=== PATIENT | female | born 1980 | race Caucasian/White ===

== ENCOUNTER 2021-11-28 15:26 | Emergency (ER) | payer BC, OTHER ==
[2021-11-28] MEDS ORDERED: cloNIDine HCL 0.1 MG TAB ONE (16:19)
[2021-11-28 16:28] LABS: Absolute Lymphocytes (CBC) 2.3 K/uL (0.7-4.9); Hematocrit 40.7 % (36.0-45.0); Lymphocytes % 29.6 % (15.3-44.8); MPV 8.4 fL (7.6-11.3)
[2021-11-28 16:43] LABS: Potassium 3.5 mmol/L (3.5-5.1); Troponin High Sensitivity 8.9 pg/mL (<58.9)
--- NOTE | 2021-11-28 17:48 | RAD REPORT ---
EXAM DESCRIPTION: Jenni Single View11/28/2021 5:38 pm CLINICAL HISTORY: Chest pain/shoulder pain COMPARISON: none FINDINGS: The lungs appear clear of acute infiltrate. The heart is normal size IMPRESSION: No acute abnormalities displayed
--- NOTE | 2021-11-28 18:25 | EDPHYS ---
Physician Documentation [facility] Name: Gabby Mueller Age: 41 yrs Sex: Female : 1980 Arrival Date: 11/28/2021 Time: 15:33 Bed 13 Private MD: ED Physician Jeffrey Molina HPI: 11/28 15:58 This 41 yrs old Female presents to ER via Unassigned with complaints of High Blood ms3 Pressure. 15:58 The patient has elevated blood pressure and discovered this at home, with a home ms3 device. Onset: The symptoms/episode began/occurred 1 month(s) ago. Modifying factors: The symptoms are aggravated by Nothing, The symptoms are alleviated by Nothing. Associated signs and symptoms: The patient has no apparent associated signs or symptoms. Severity of symptoms: At its worst the blood pressure was severe, earlier today, 213 mm Hg. 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 - Social history:: Smoking status: Patient reports the use of cigarette tobacco products, smokes one pack cigarettes per day. ROS: 15:58 Constitutional: Negative for fever, and chills. Eyes: Negative for injury, pain, ms3 redness, and discharge, Neck: Negative for injury, pain, and swelling, Cardiovascular: Negative for chest pain, and palpitations. Respiratory: Negative for shortness of breath, cough, wheezing, and pleuritic chest pain, Abdomen/GI: Negative for abdominal pain, nausea, vomiting, diarrhea, and constipation, Skin: Negative for injury, rash, and discoloration, Neuro: Negative for headache, weakness, numbness, tingling. 15:58 MS/extremity: Positive for Left shoulder pain. Exam: 15:58 Constitutional: This is a well developed, well nourished patient who is awake, alert, ms3 and in no acute distress. Head/Face: Normocephalic, atraumatic. Neck: Trachea midline, no cervical lymphadenopathy. Supple, full range of motion without nuchal rigidity, or vertebral point tenderness. No Meningismus. Chest/axilla: Normal chest wall appearance and motion. Nontender with no deformity. Cardiovascular: Regular rate and rhythm with a normal S1 and S2. No gallops, murmurs, or rubs. Normal PMI, no JVD. No pulse deficits. Respiratory: Lungs have equal breath sounds bilaterally, clear to auscultation and percussion. No rales, rhonchi or wheezes noted. No increased work of breathing, no retractions or nasal flaring. Abdomen/GI: Soft, non-tender, with normal bowel sounds. No distension or tympany. No guarding or rebound. No evidence of tenderness throughout. MS/ Extremity: Pulses equal, no cyanosis. Neurovascular intact. Full, normal range of motion. Psych: Awake, alert, with orientation to person, place and time. Behavior, mood, and affect are within normal limits. 16:25 ECG was reviewed by the Attending Physician. ms3 Vital Signs: 15:46 BP 210 / 113; Pulse 78; Resp 22; ww 15:55 BP 210 / 113; Pulse 81; Resp 15; Temp 98.7; Pulse Ox 99% on R/A; Weight 111.13 kg; jl7 Height 5 ft. 6 in. (167.64 cm); Pain 5/10; 16:00 BP 163 / 107; Pulse 75; Resp 20; Pulse Ox 98% ; ww 16:32 BP 167 / 94; Pulse 71; Resp 18; Pulse Ox 99% ; ww 17:30 BP 164 / 92; Pulse 63; Resp 18; Pulse Ox 98% ; ww 18:32 BP 171 / 87; Pulse 69; Resp 18; Pulse Ox 99% on R/A; ww 15:55 Body Mass Index 39.54 (111.13 kg, 167.64 cm) jl7 MDM: 15:57 Patient medically screened. ms3 18:25 Differential diagnosis: hypertensive crisis, Malignant HTN, ACS vs Renal insufficiency. ms3 Data reviewed: vital signs, nurses notes, lab test result(s), EKG, radiologic studies. Data interpreted: Pulse oximetry: on room air is 99 %. Interpretation: normal. Counseling: I had a detailed discussion with the patient and/or guardian regarding: the historical points, exam findings, and any diagnostic results supporting the discharge/admit diagnosis, the presence of at least one elevated blood pressure reading (>120/80) during this emergency department visit, lab results, radiology results, the need for outpatient follow up, to return to the emergency department if symptoms worsen or persist or if there are any questions or concerns that arise at home. ED course: Discussed CXR, EKG, labs, and PE findings with patient. Patient to follow up with Dr Mahan or Dr Salamanca in 2-3 days. Patient understands/ agrees with plan. All questions answered. Return precautions given to include worsening symptoms, or any other concerns. Patient is improved, in NAD, non-toxic appearing, ambulatory in ED, speaking full sentences.. 11/28 15:57 Order name: Basic Metabolic Panel; Complete Time: 17:03 ms3 11/28 15:57 Order name: CBC with Diff; Complete Time: 17:03 ms3 11/28 15:57 Order name: Troponin HS; Complete Time: 17:03 ms3 11/28 15:57 Order name: XRAY Chest (1 view); Complete Time: 18:18 ms3 11/28 15:57 Order name: EKG; Complete Time: 15:58 ms3 11/28 15:57 Order name: Cardiac monitoring; Complete Time: 16:24 ms3 11/28 15:57 Order name: EKG - Nurse/Tech; Complete Time: 16:32 ms3 11/28 15:57 Order name: IV Saline Lock; Complete Time: 16:32 ms3 11/28 15:57 Order name: Labs collected and sent; Complete Time: 16:32 ms3 11/28 15:57 Order name: O2 Per Protocol; Complete Time: 16:23 ms3 11/28 15:57 Order name: O2 Sat Monitoring; Complete Time: 16:24 ms3 EC:25 Rate is 69 beats/min. Rhythm is regular. QRS [place] is Normal. [place] interval is normal. QRS ms3 interval is normal. Clinical impression: Normal ECG. Interpreted by me. Administered Medications: 16:23 Drug: cloNIDine 0.1 mg Route: PO; ww Disposition Summary: 11/28/21 18:25 Discharge Ordered Location: Home ms3 Problem: new ms3 Symptoms: are unchanged ms3 Condition: Stable ms3 Diagnosis - Elevated blood-pressure reading, without diagnosis of hypertension ms3 - Pain in left shoulder ms3 Followup: ms3 - With: Chato Mahan MD - When: 2 - 3 days - Reason: Recheck today's complaints Followup: ms3 - With: Valentín Salamanca MD - When: 2 - 3 days - Reason: Recheck today's complaints Discharge Instructions: - Discharge Summary Sheet ms3 - Hypertension, Adult ms3 Forms: - Medication Reconciliation Form ms3 - Thank You Letter ms3 - Antibiotic Education ms3 - Prescription Opioid Use ms3 Prescriptions: - Hydrochlorothiazide 12.5 mg Oral Tablet - take 1 tablet by ORAL route once daily; 30 tablet; Refills: 0, Product ms3 Selection Permitted Signatures: Dispatcher [employer] EDDavid Del Rosario RN RN jl7 Jeffrey Molina DO DO ms3 Yaneli Schroeder, RN RN ww
--- NOTE | 2021-11-28 18:25 | ER ---
Nurse's Notes [facility] Name: Gabby Mueller Age: 41 yrs Sex: Female : 1980 Arrival Date: 11/28/2021 Time: 15:33 Bed 13 Private MD: Diagnosis: Elevated blood-pressure reading, without diagnosis of hypertension;Pain in left shoulder Presentation: 11/28 15:55 Chief complaint: Patient states: Sent by Dr. Padilla for high blood pressure, systolic jl7 216. Coronavirus screen: At this time, the client does not indicate any symptoms associated with coronavirus-19. Ebola Screen: No symptoms or risks identified at this time. Initial Sepsis Screen: Does the patient meet any 2 criteria? No. Patient's initial sepsis screen is negative. Does the patient have a suspected source of infection? No. Patient's initial sepsis screen is negative. Risk Assessment: Do you want to hurt yourself or someone else? Patient reports no desire to harm self or others. 15:55 Method Of Arrival: Ambulatory jl7 15:55 Acuity: ANALI 3 jl7 Triage Assessment: 15:59 General: Appears in no apparent distress. uncomfortable, Behavior is calm, cooperative, jl7 appropriate for age. Pain: Complains of pain in JORGE. 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 - Social history:: Smoking status: Patient reports the use of cigarette tobacco products, smokes one pack cigarettes per day. Screenin:33 Abuse screen: Denies threats or abuse. Denies injuries from another. Nutritional ww screening: No deficits noted. Tuberculosis screening: No symptoms or risk factors identified. Fall Risk None identified. Assessment: 16:32 General: Appears in no apparent distress. Behavior is cooperative. Neuro: Level of ww Consciousness is awake, alert, obeys commands, Oriented to person, place, time, situation, Moves all extremities. Speech is normal. Cardiovascular: Capillary refill < 3 seconds Patient's skin is warm and dry. Rhythm is regular. Respiratory: Airway is patent Respiratory effort is even, unlabored, Respiratory pattern is regular, symmetrical. GI: No signs and/or symptoms were reported involving the gastrointestinal system. Abdomen is round non-distended. : No signs and/or symptoms were reported regarding the genitourinary system. Derm: No signs and/or symptoms reported regarding the dermatologic system. Skin is intact, is healthy with good turgor. Musculoskeletal: No signs and/or symptoms reported regarding the musculoskeletal system. 17:45 Reassessment: Patient appears in no apparent distress at this time. No changes from ww previously documented assessment. Patient and/or family updated on plan of care and expected duration. Pain level reassessed. Patient is alert, oriented x 3, equal unlabored respirations, skin warm/dry/pink. Patient states feeling better. 18:32 Reassessment: Patient appears in no apparent distress at this time. No changes from ww previously documented assessment. Patient and/or family updated on plan of care and expected duration. Pain level reassessed. Patient is alert, oriented x 3, equal unlabored respirations, skin warm/dry/pink. Patient states feeling better. Vital Signs: 15:46 BP 210 / 113; Pulse 78; Resp 22; ww 15:55 BP 210 / 113; Pulse 81; Resp 15; Temp 98.7; Pulse Ox 99% on R/A; Weight 111.13 kg; jl7 Height 5 ft. 6 in. (167.64 cm); Pain 5/10; 16:00 BP 163 / 107; Pulse 75; Resp 20; Pulse Ox 98% ; ww 16:32 BP 167 / 94; Pulse 71; Resp 18; Pulse Ox 99% ; ww 17:30 BP 164 / 92; Pulse 63; Resp 18; Pulse Ox 98% ; ww 18:32 BP 171 / 87; Pulse 69; Resp 18; Pulse Ox 99% on R/A; ww 15:55 Body Mass Index 39.54 (111.13 kg, 167.64 cm) jl7 ED Course: 15:33 Patient arrived in ED. ds1 15:34 Jeffrey Molina DO is Attending Physician. ms3 15:57 Yaneli Schroeder, RN is Primary Nurse. ww 15:59 Triage completed. jl7 15:59 Arm band placed on right wrist. jl7 17:10 Patient has correct armband on for positive identification. Bed in low position. Call ww light in reach. Side rails up X 1. 17:10 No provider procedures requiring assistance completed. ww 17:39 XRAY Chest (1 view) In Process Unspecified. EDMS 18:22 Chato Mahan MD is Referral Physician. ms3 18:23 Valentín Salamanca MD is Referral Physician. ms3 18:33 IV discontinued, intact, bleeding controlled, No redness/swelling at site. Pressure ww dressing applied. Administered Medications: 16:23 Drug: cloNIDine 0.1 mg Route: PO; ww Outcome: 18:25 Discharge ordered by . ms3 18:33 Discharged to home ambulatory, with family. ww 18:33 Condition: stable 18:33 Discharge instructions given to patient, family, Instructed on discharge instructions, follow up and referral plans. medication usage, safety practices, Demonstrated understanding of instructions, follow-up care, medications, Prescriptions given X 1. 18:34 Patient left the ED. ww Signatures: Dispatcher [employer] [facility] Shireen Roman ds1 David Carranza RN RN jl7 Jeffrey Molina DO DO ms3 Yaneli Schroeder, RN RN ww
[2021-11-28 19:38] VITALS: TEMP 98.7
[2021-11-28 19:44] VITALS: BP 171/87; O2SAT 99
--- NOTE | 2021-11-29 07:45 | EKG ---
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
== END 2021-11-28 18:34 | disposition home or self-care (01) ==
LOC: ER 15:26
DX: R03.0 Elevated blood-pressure reading, without diagnosis of hypertension (principal); M25.512 Pain in left shoulder; F32.A Depression, unspecified; F17.210 Nicotine dependence, cigarettes, uncomplicated
CPT/HCPCS: 36415; 71045; 80048; 84484; 85025; 93005; 99283